=== PATIENT | female | born 1945 | race Caucasian/White ===

== ENCOUNTER 2021-12-26 11:33 | Emergency (ER) | payer OTHER ==
--- NOTE | 2021-12-26 12:37 | RAD REPORT ---
EXAM DESCRIPTION: RAD - Chest Single View - 12/26/2021 12:28 pm CLINICAL HISTORY: back pain Chest pain. COMPARISON: Chest Pa And Lat (2 Views) dated 09/02/2017; CHEST SINGLE VIEW dated 08/22/2013; CHEST SIN GLE VIEW dated 01/10/2013; CHEST SINGLE VIEW dated 09/20/2008 FINDINGS: Portable technique limits examination quality. The lungs are grossly clear. The heart is normal in size. No displaced fractures. IMPRESSION: No acute intrathoracic process suspected.
[2021-12-26 13:28] LABS: Absolute Lymphocytes (CBC) 1.7 K/uL (0.7-4.9); Hematocrit 41.4 % (36.0-45.0); Lymphocytes % 28.5 % (15.3-44.8); MPV 7.9 fL (7.6-11.3); RBC Red Blood Cell Count 4.66 M/uL (3.86-4.86)
[2021-12-26 13:32] LABS: Protime INR 1.03
[2021-12-26] MEDS ORDERED: NA CHLORIDE 0.9% 500 ML ONE (13:36)
[2021-12-26 13:49] LABS: Albumin 3.7 g/dL (3.4-5.0); Bilirubin Direct 0.1 mg/dL (0-0.2); Bilirubin Total 0.6 mg/dL (0.2-1.0); Protein, Total 7.2 g/dL (6.4-8.2); Troponin High Sensitivity 4.9 pg/mL (<58.9)
--- NOTE | 2021-12-26 14:36 | ER ---
Nurse's Notes [facility] Name: Sandra Moore Age: 76 yrs Sex: Female : 1945 Arrival Date: 12/26/2021 Time: 11:40 Bed 14 Private MD: Diagnosis: Muscle spasm of back Presentation: 12/26 11:56 Chief complaint: Patient states: Back pain for 2 days. States she feels anxious because ll1 of the pain. Mouth feels dry. Coronavirus screen: Client denies travel out of the [place] in the last 14 days. At this time, the client does not indicate any symptoms associated with coronavirus-19. Ebola Screen: Patient denies travel to an Ebola-affected area in the 21 days before illness onset. Initial Sepsis Screen: Does the patient meet any 2 criteria? No. Patient's initial sepsis screen is negative. Does the patient have a suspected source of infection? No. Patient's initial sepsis screen is negative. Risk Assessment: Do you want to hurt yourself or someone else? Patient reports no desire to harm self or others. Onset of symptoms was December 25, 2021. 11:56 Method Of Arrival: Ambulatory ll1 11:56 Acuity: MITESH 3 ll1 Triage Assessment: 11:59 General: Appears uncomfortable, Behavior is calm, cooperative. Pain: Complains of pain ll1 in back. Neuro: Reports anxiety. Musculoskeletal: Circulation, motion, and sensation intact. Capillary refill < 3 seconds. Historical: - Allergies: 11:58 Codeine; ll1 11:58 Keflex; ll1 11:58 PENICILLINS; ll1 - PMHx: 11:58 Anxiety; chronic kidney disease (stage 3); GERD; Hypertension; Obesity; osteoarthritis; ll1 - PSHx: 11:58 carpal tunnel x 2; Cholecystectomy; Tonsillectomy; ll1 - Immunization history:: Client reports receiving the 2nd dose of the Covid vaccine. - Social history:: Smoking status: Patient denies any tobacco usage or history of. Screenin:25 Abuse screen: Denies threats or abuse. Denies injuries from another. Nutritional ww screening: No deficits noted. Tuberculosis screening: No symptoms or risk factors identified. Fall Risk None identified. Assessment: 13:30 General: Appears in no apparent distress. Behavior is calm, cooperative. Pain: ww Complains of pain in base of the skull. Neuro: Level of Consciousness is awake, alert, obeys commands, Oriented to person, place, time, situation, Gait is steady, Speech is normal. Cardiovascular: Patient's skin is warm and dry. Chest pain is denied. Respiratory: Airway is patent Respiratory effort is even, unlabored, Respiratory pattern is regular, symmetrical. GI: No signs and/or symptoms were reported involving the gastrointestinal system. Abdomen is non-distended. : No signs and/or symptoms were reported regarding the genitourinary system. EENT: Reports pain in tongue. Derm: Skin is intact, is healthy with good turgor. 14:26 Reassessment: Patient appears in no apparent distress at this time. No changes from ww previously documented assessment. Patient and/or family updated on plan of care and expected duration. Pain level reassessed. Patient is alert, oriented x 3, equal unlabored respirations, skin warm/dry/pink. 15:22 Reassessment: Patient appears in no apparent distress at this time. No changes from ww previously documented assessment. Patient and/or family updated on plan of care and expected duration. Pain level reassessed. Patient is alert, oriented x 3, equal unlabored respirations, skin warm/dry/pink. Patient states feeling better. Vital Signs: 11:56 BP 123 / 76; Pulse 83; Resp 17; Temp 98.1; Pulse Ox 95% on R/A; Weight 58.06 kg; Height ll1 5 ft. 3 in. (160.02 cm); Pain 8/10; 13:45 BP 132 / 65; Pulse 68; Resp 15; Pulse Ox 100% ; ww 14:30 BP 139 / 77; Pulse 60; Resp 17; Pulse Ox 98% ; ww 15:23 BP 160 / 98; Pulse 72; Resp 17; Pulse Ox 100% ; ww 11:56 Body Mass Index 22.67 (58.06 kg, 160.02 cm) ll1 ED Course: 11:40 Patient arrived in ED. ds1 11:58 Triage completed. ll1 11:59 Arm band placed on. ll1 12:01 Jose Angel Molina NP is PHCP. pm1 12:01 Ghulam Lopez MD is Attending Physician. pm1 12:30 XRAY Chest (1 view) In Process Unspecified. EDMS 13:24 Palma Stewart, RN is Primary Nurse. ww 14:00 Inserted saline lock: 20 gauge in right forearm, using aseptic technique. ww 15:25 Patient has correct armband on for positive identification. Bed in low position. Call ww light in reach. Side rails up X 1. 15:25 No provider procedures requiring assistance completed. ww 15:26 IV discontinued, bleeding controlled, No redness/swelling at site. Pressure dressing ww applied. Administered Medications: 13:52 Drug: NS 0.9% 500 ml Route: IV; Rate: bolus; Site: right forearm; ww 15:03 Drug: Valium (diazepam) 2 mg Route: PO; ww Outcome: 14:35 Discharge ordered by MD. pm1 15:26 Discharged to home ambulatory. ww 15:26 Condition: stable 15:26 Discharge instructions given to patient, Instructed on discharge instructions, follow up and referral plans. medication usage, safety practices, Demonstrated understanding of instructions, follow-up care. 15:30 Patient left the ED. ww Signatures: Dispatcher [employer] [facility] Sarah Pavon ds1 Jose Angel Molina, [place] LINTER TENDER pm1 Katia Mcmullen, RN RN ll1 Palma Stewart, RN RN ww
--- NOTE | 2021-12-26 14:36 | EDPHYS ---
Physician Documentation [facility] Name: Sandra Moore Age: 76 yrs Sex: Female : 1945 Arrival Date: 12/26/2021 Time: 11:40 Bed 14 Private MD: ED Physician Ghulam Lopez HPI: 12/26 12:02 This 76 yrs old Female presents to ER via Ambulatory with complaints of Back Pain, pm1 Anxiety. 12:02 The patient presents with pain that is acute. The symptoms are located in the left pm1 trapezius and right trapezius. 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 The pain does not radiate. Associated signs and symptoms: Pertinent positives: Anxiety, Pertinent negatives: abdominal pain, chest pain, fever, numbness, tingling. The problem was sustained physical activity: mowing the lawn. Modifying factors: the patient symptoms are aggravated by movement. Severity of symptoms: in the emergency department the symptoms are unchanged. The patient has not experienced similar symptoms in the past. The patient has not recently seen a physician. Historical: - Allergies: 11:58 Codeine; ll1 11:58 Keflex; ll1 11:58 PENICILLINS; ll1 - PMHx: 11:58 Anxiety; chronic kidney disease (stage 3); GERD; Hypertension; Obesity; osteoarthritis; ll1 - PSHx: 11:58 carpal tunnel x 2; Cholecystectomy; Tonsillectomy; ll1 - Immunization history:: Client reports receiving the 2nd dose of the Covid vaccine. - Social history:: Smoking status: Patient denies any tobacco usage or history of. ROS: 12:02 Constitutional: Negative for fever, chills, and weight loss, Cardiovascular: Negative pm1 for chest pain, palpitations, and edema, Respiratory: Negative for shortness of breath, cough, wheezing, and pleuritic chest pain, MS/Extremity: Negative for injury and deformity, Skin: Negative for injury, rash, and discoloration, Neuro: Negative for headache, weakness, numbness, tingling, and seizure. 12:02 Psych: Positive for suicidal ideation, Negative for homicidal ideation. 12:02 All other systems are negative. Exam: 12:02 Constitutional: This is a well developed, well nourished patient who is awake, alert, pm1 and in no acute distress. Head/Face: Normocephalic, atraumatic. Chest/axilla: Normal chest wall appearance and motion. Nontender with no deformity. No lesions are appreciated. Cardiovascular: Regular rate and rhythm with a normal S1 and S2. No gallops, murmurs, or rubs. Normal PMI, no JVD. No pulse deficits. Respiratory: Lungs have equal breath sounds bilaterally, clear to auscultation and percussion. No rales, rhonchi or wheezes noted. No increased work of breathing, no retractions or nasal flaring. 12:02 Skin: Warm, dry with normal turgor. Normal color with no rashes, no lesions, and no evidence of cellulitis. MS/ Extremity: Pulses equal, no cyanosis. Neurovascular intact. Full, normal range of motion. 12:02 Abdomen/GI: Exam negative for acute changes, Inspection: abdomen appears normal, Palpation: abdomen is soft and non-tender, in all quadrants. 12:02 Back: muscle spasm, is appreciated in the left trapezius and right trapezius. 12:02 Neuro: Exam negative for acute changes, Orientation: is normal, Mentation: is normal, Motor: is normal, moves all fours. Vital Signs: 11:56 BP 123 / 76; Pulse 83; Resp 17; Temp 98.1; Pulse Ox 95% on R/A; Weight 58.06 kg; Height ll1 5 ft. 3 in. (160.02 cm); Pain 8/10; 13:45 BP 132 / 65; Pulse 68; Resp 15; Pulse Ox 100% ; ww 14:30 BP 139 / 77; Pulse 60; Resp 17; Pulse Ox 98% ; ww 15:23 BP 160 / 98; Pulse 72; Resp 17; Pulse Ox 100% ; ww 11:56 Body Mass Index 22.67 (58.06 kg, 160.02 cm) ll1 MDM: 12:14 Patient medically screened. pm1 14:32 Data reviewed: vital signs. Data interpreted: Pulse oximetry: on room air is 95 %. pm1 Interpretation: normal. Counseling: I had a detailed discussion with the patient and/or guardian regarding: the historical points, exam findings, and any diagnostic results supporting the discharge/admit diagnosis, lab results, radiology results, the need for outpatient follow up, to return to the emergency department if symptoms worsen or persist or if there are any questions or concerns that arise at home. 14:46 ED course: Patient's back pain resolved with massage to upper back. Patient is pm1 concerned that she may have thrush. Will discharge home with nystatin. 12/26 12:02 Order name: Basic Metabolic Panel; Complete Time: 13:50 pm1 12/26 12:02 Order name: CBC with Diff; Complete Time: 13:37 pm1 12/26 12:02 Order name: LFT's; Complete Time: 13:50 pm1 12/26 12:02 Order name: Magnesium; Complete Time: 13:50 pm1 12/26 12:02 Order name: PT-INR; Complete Time: 13:37 pm1 12/26 12:02 Order name: Troponin HS; Complete Time: 13:50 pm1 12/26 12:02 Order name: XRAY Chest (1 view); Complete Time: 13:22 pm1 12/26 12:02 Order name: EKG; Complete Time: 12:03 pm1 12/26 12:02 Order name: Cardiac monitoring; Complete Time: 13:25 pm1 12/26 12:02 Order name: EKG - Nurse/Tech; Complete Time: 13:52 pm1 12/26 12:02 Order name: IV Saline Lock; Complete Time: 13:25 pm1 12/26 12:02 Order name: Labs collected and sent; Complete Time: 13:25 pm1 12/26 12:02 Order name: O2 Per Protocol; Complete Time: 13:25 pm1 12/26 12:02 Order name: O2 Sat Monitoring; Complete Time: 13:25 pm1 Administered Medications: 13:52 Drug: NS 0.9% 500 ml Route: IV; Rate: bolus; Site: right forearm; ww 15:03 Drug: Valium (diazepam) 2 mg Route: PO; ww Disposition: 18:55 Co-signature as Attending Physician, Ghulam Lopez MD. rn Disposition Summary: 12/26/21 14:35 Discharge Ordered Location: Home pm1 Problem: new pm1 Symptoms: have improved pm1 Condition: Stable pm1 Diagnosis - Muscle spasm of back pm1 Followup: pm1 - With: Emergency Department - When: As needed - Reason: Worsening of condition Followup: pm1 - With: Private Physician - When: 2 - 3 days - Reason: Recheck today's complaints, Continuance of care, Re-evaluation by your physician Discharge Instructions: - Discharge Summary Sheet pm1 - Muscle Cramps and Spasms pm1 Forms: - Medication Reconciliation Form pm1 - Thank You Letter pm1 - Antibiotic Education pm1 - Prescription Opioid Use pm1 Prescriptions: - Nystatin 100,000 unit/mL Oral Suspension - take 5 milliliters by ORAL route every 6 hours; 120 milliliter; Refills: 0, pm1 Product Selection Permitted Signatures: Dispatcher [employer] EDGhulam Mtz MD MD rn Jose Angel Molina, SUPERVISOR SLASHING DEPARTMENT SUPERVISOR SLASHING DEPARTMENT pm1 Katia Mcmullen RN RN ll1 Palma Stewart RN RN ww Corrections: (The following items were deleted from the chart) 14:36 14:35 Strain of muscle and tendon of back wall of thorax pm1 pm1
[2021-12-26] MEDS ORDERED: DIAZEPAM 2 MG TABLET ONE (15:03)
[2021-12-26 17:45] VITALS: TEMP 98.1
[2021-12-26 17:49] VITALS: BP 160/98; O2SAT 100
--- NOTE | 2021-12-27 12:55 | EKG ---
Test Date: 2021-12-26 Test Time: 13:45:19 Stencil Printer: JC MEASUREMENT RESULTS: Intervals: Rate: 63 ME: 174 QRSD: 112 QT: 430 QTc: 440 [place]: P: 16 ME: 174 QRS: -36 T: 255 INTERPRETIVE STATEMENTS: Normal sinus rhythm Left axis deviation Minimal voltage criteria for LVH, may be normal variant T wave abnormality, consider inferolateral ischemia Abnormal ECG Compared to ECG 09/02/2017 11:48:52 Left-axis deviation now present T-wave abnormality now present Possible ischemia now present Electronically Signed On 12-27-21 12:52:09 CDT by Mauricio Bermudez
== END 2021-12-26 15:30 | disposition home or self-care (01) ==
LOC: ER 11:33
DX: M62.830 Muscle spasm of back (principal); I12.9 Hypertensive chronic kidney disease with stage 1 through stage 4 chronic kidney disease, or unspecified chronic kidney disease; N18.30 Chronic kidney disease, stage 3 unspecified; F41.9 Anxiety disorder, unspecified; Z88.0 Allergy status to penicillin; Z88.5 Allergy status to narcotic agent
CPT/HCPCS: 93005; 85025; 80048; 36415; 83735; 85610; 80076; 84484; 71045; 99284; J7040

== ENCOUNTER 2022-05-04 23:13 | Emergency (ER) | payer OTHER, SELFPAY ==
[2022-05-05] MEDS ORDERED: MAGNES/ALUMIN/SIMET 30ML UCUP ONE (00:01)
[2022-05-05] MEDS ORDERED: LIDOCAINE VISCOUS 2% SOLN 15 ML UDC ONE (00:01)
[2022-05-05 01:00] LABS: Urine Blood 2+ (Negative); Urine Glucose Negative (Negative); Urine Protein Negative (Negative); Urine Specific Gravity >=1.030 (1.005-1.030); Urine pH 5.5 (5.0-7.0)
[2022-05-05 01:24] LABS: Barbiturates NEGATIVE (NEGATIVE); Benzodiazepines NEGATIVE (NEGATIVE); Cocaine NEGATIVE (NEGATIVE); METHAMPHETAM NEGATIVE (NEGATIVE); Methadone NEGATIVE (NEGATIVE); Opiates NEGATIVE (NEGATIVE); Phencyclidine NEGATIVE (NEGATIVE); THC Cannibis NEGATIVE (NEGATIVE)
--- NOTE | 2022-05-05 01:26 | EDPHYS ---
Physician Documentation [facility] Name: Sandra Moore Age: 77 yrs Sex: Female : 1945 Arrival Date: 05/04/2022 Time: 23:19 Bed 4 Private MD: ED Physician Ghulam Lopez HPI: 05/05 01:31 This 77 yrs old Female presents to ER via Ambulatory with complaints of Mouth Swelling. snw 01:31 The patient presents with tongue painful and mildly swollen. The problem is located in snw the tongue. Onset: The symptoms/episode began/occurred suddenly. Duration: The symptoms are continuous. Associated signs and symptoms: Pertinent positives: pain, swelling, upper respiratory congestion. Severity of symptoms: At their worst the symptoms were moderate. The patient has not experienced similar symptoms in the past. The patient has not recently seen a physician. Historical: - Allergies: 05/04 23:40 Codeine; bm7 23:40 Keflex; bm7 23:40 PENICILLINS; bm7 - Home Meds: 23:40 None [Active]; bm7 - PMHx: 23:40 osteoarthritis; Hypertension; GERD; chronic kidney disease (stage 3); Anxiety; bm7 - PSHx: 23:40 carpal tunnel x 2; Cholecystectomy; Tonsillectomy; bm7 - Immunization history:: Adult Immunizations up to date, Client reports receiving the 2nd dose of the Covid vaccine, Client reports receiving the 1st dose of the Covid vaccine. - Social history:: Smoking status: Patient denies any tobacco usage or history of. Patient/guardian denies using alcohol, street drugs, IV drugs. ROS: 05/05 01:33 Constitutional: Negative for fever, chills, and weight loss, Eyes: Negative for injury, snw pain, redness, and discharge, Neck: Negative for injury, pain, and swelling, Cardiovascular: Negative for chest pain, palpitations, and edema, Respiratory: Negative for shortness of breath, cough, wheezing, and pleuritic chest pain, Abdomen/GI: Negative for abdominal pain, nausea, vomiting, diarrhea, and constipation, Back: Negative for injury and pain, : Negative for injury, bleeding, discharge, and swelling, MS/Extremity: Negative for injury and deformity, Skin: Negative for injury, rash, and discoloration, Neuro: Negative for headache, weakness, numbness, tingling, and seizure. ENT: Positive for ear pain, sinus congestion, painful, swollen tongue. Exam: 01:33 Constitutional: This is a well developed, well nourished patient who is awake, alert, snw and in no acute distress. Head/Face: Normocephalic, atraumatic. Eyes: Pupils equal round and reactive to light, extra-ocular motions intact. Lids and lashes normal. Conjunctiva and sclera are non-icteric and not injected. Cornea within normal limits. Periorbital areas with no swelling, redness, or edema. Neck: Trachea midline, no thyromegaly or masses palpated, and no cervical lymphadenopathy. Supple, full range of motion without nuchal rigidity, or vertebral point tenderness. No Meningismus. Chest/axilla: Normal chest wall appearance and motion. Nontender with no deformity. No lesions are appreciated. Cardiovascular: Regular rate and rhythm with a normal S1 and S2. No gallops, murmurs, or rubs. Normal PMI, no JVD. No pulse deficits. Respiratory: Lungs have equal breath sounds bilaterally, clear to auscultation and percussion. No rales, rhonchi or wheezes noted. No increased work of breathing, no retractions or nasal flaring. Abdomen/GI: Soft, non-tender, with normal bowel sounds. No distension or tympany. No guarding or rebound. No evidence of tenderness throughout. Back: No spinal tenderness. No costovertebral tenderness. Full range of motion. Skin: Warm, dry with normal turgor. Normal color with no rashes, no lesions, and no evidence of cellulitis. MS/ Extremity: Pulses equal, no cyanosis. Neurovascular intact. Full, normal range of motion. Neuro: Awake and alert, GCS 15, oriented to person, place, time, and situation. Cranial nerves II-XII grossly intact. Motor strength 5/5 in all extremities. Sensory grossly intact. Cerebellar exam normal. Normal gait. :33 ENT: External ear(s): are unremarkable, Ear canal(s): are normal, TM's: are normal, Nose: Nasal mucosa: edematous, Mouth: Tongue: displays fissures, is swollen, tender, Posterior pharynx: erythema, that is mild, Voice: is normal. Vital Signs: 05/04 23:38 BP 174 / 90; Pulse 76; Resp 18; Temp 99.0(TE); Pulse Ox 100% on R/A; Weight 58.06 kg bm7 (R); Height 5 ft. 3 in. (160.02 cm); Pain 06/04; 05/05 01:41 BP 140 / 82; Pulse 62; Resp 17; Pulse Ox 97% on R/A; ll3 05/04 23:38 Body Mass Index 22.67 (58.06 kg, 160.02 cm) bm7 MDM: 05/04 23:40 Patient medically screened. rn 05/05 01:31 Data reviewed: vital signs, nurses notes. Data interpreted: Pulse oximetry: on room air snw is 100 %. Interpretation: normal. Counseling: I had a detailed discussion with the patient and/or guardian regarding: the historical points, exam findings, and any diagnostic results supporting the discharge/admit diagnosis, the presence of at least one elevated blood pressure reading (>120/80) during this emergency department visit, lab results, the need for outpatient follow up, to return to the emergency department if symptoms worsen or persist or if there are any questions or concerns that arise at home. Special discussion: Based on the history and exam findings, there is no indication for further emergent testing or inpatient evaluation. I discussed with the patient/guardian the need to see the primary care provider for further evaluation of the symptoms. ED course: Pt states she is feeling better.. 05/04 23:50 Order name: Flu; Complete Time: 00:38 snw 05/04 23:50 Order name: Strep; Complete Time: 00:13 snw 05/04 23:50 Order name: UDS; Complete Time: 01:24 snw 05/04 23:50 Order name: Urine Culture snw 05/04 23:50 Order name: Urine Microscopic Only; Complete Time: 16:20 snw 05/04 23:50 Order name: Urine Dipstick-Ancillary (obtain specimen); Complete Time: 01:13 snw 05/05 00:02 Order name: SARS-COV-2 RT PCR (Document "Date of Onset" if Symptomatic); Complete Time: ds4 00:38 05/05 00:15 Order name: Throat Culture EDID 05/05 01:00 Order name: Urine Dipstick-Ancillary; Complete Time: 01:01 EDMS Administered Medications: 05/04 23:57 Drug: GI Cocktail without - (Maalox Suspension 30 ml, Lidocaine Liquid 2 % 15 bm7 ml) Route: PO; 05/05 01:51 Drug: Cyanocobalamin 1000 mcg Route: IM; Site: left deltoid; ke1 Disposition: 06:08 Co-signature as Attending Physician, Ghulam Lopez MD. rn Disposition Summary: 05/05/22 01:25 Discharge Ordered Location: Home snw Condition: Stable snw Diagnosis - Glossitis snw Followup: snw - With: Private Physician - When: 2 - 3 days - Reason: Recheck today's complaints, Continuance of care, Re-evaluation by your physician Followup: snw - With: Emergency Department - When: As needed - Reason: Worsening of condition Discharge Instructions: - Discharge Summary Sheet snw - Glossitis snw Forms: - Medication Reconciliation Form snw - Thank You Letter snw - Antibiotic Education snw - Prescription Opioid Use snw Prescriptions: - Tums Extra Strength Smoothies - dissolve 1 tablet by ORAL route 3 times per day for 10 days; 30 tablet; snw Refills: 0, Product Selection Permitted Signatures: Dispatcher [employer] EDMS Raven Taveras, COAL BAGGER-C COAL BAGGER-Csnw Ghulam Lopez MD MD rn McCarthy, Brittany, RN RN 7 Yvan Shetty RN RN ke1 Corrections: (The following items were deleted from the chart) 05/04 23:40 23:40 PMHx: Obesity; bm7 bm7 05/05 00:06 05/04 23:51 SARS-COV-2 Antigen Rapid+I.LAB.BRZ ordered. EDMS EDMS
--- NOTE | 2022-05-05 01:26 | ER ---
Nurse's Notes [facility] Name: Sandra Moore Age: 77 yrs Sex: Female : 1945 Arrival Date: 05/04/2022 Time: 23:19 Bed 4 Private MD: Diagnosis: Glossitis Presentation: 05/04 23:38 Chief complaint: Patient states: I feel so bad all over, my throat hurts, I have sores bm7 on my tongue and my son thinks I am on drugs. He has been so mean to me today and told me to get out of the house and that I am crazy. He has a good case against me because I am old and forget things. Coronavirus screen: Client presents with at least one sign or symptom that may indicate coronavirus-19. Standard/surgical mask placed on the client. Ebola Screen: No symptoms or risks identified at this time. Initial Sepsis Screen: Does the patient meet any 2 criteria? No. Patient's initial sepsis screen is negative. Does the patient have a suspected source of infection? No. Patient's initial sepsis screen is negative. Risk Assessment: Do you want to hurt yourself or someone else? Patient reports no desire to harm self or others. Onset of symptoms is unknown. 23:38 Method Of Arrival: Ambulatory [facility] 23:38 Acuity: MITESH 4 bm7 Triage Assessment: 23:41 General: Appears distressed, uncomfortable, Behavior is anxious, crying, restless. bm7 Pain: Complains of pain in mouth. EENT: Oral mucosa is moist. Lesions noted. Throat is reddened Reports difficulty swallowing. Neuro: No deficits noted. Level of Consciousness is awake, alert, obeys commands, Oriented to person, place, time, situation. Cardiovascular: No deficits noted. Respiratory: No deficits noted. GI: No deficits noted. No signs and/or symptoms were reported involving the gastrointestinal system. : No deficits noted. No signs and/or symptoms were reported regarding the genitourinary system. Derm: No deficits noted. No signs and/or symptoms reported regarding the dermatologic system. Musculoskeletal: No deficits noted. No signs and/or symptoms reported regarding the musculoskeletal system. Historical: - Allergies: 23:40 Codeine; bm7 23:40 Keflex; bm7 23:40 PENICILLINS; bm7 - Home Meds: 23:40 None [Active]; bm7 - PMHx: 23:40 osteoarthritis; Hypertension; GERD; chronic kidney disease (stage 3); Anxiety; 7 - PSHx: 23:40 carpal tunnel x 2; Cholecystectomy; Tonsillectomy; bm7 - Immunization history:: Adult Immunizations up to date, Client reports receiving the 2nd dose of the Covid vaccine, Client reports receiving the 1st dose of the Covid vaccine. - Social history:: Smoking status: Patient denies any tobacco usage or history of. Patient/guardian denies using alcohol, street drugs, IV drugs. Screenin/10 01:41 Abuse screen: Denies threats or abuse. Denies injuries from another. Nutritional ll3 screening: No deficits noted. Tuberculosis screening: No symptoms or risk factors identified. Fall Risk None identified. Assessment: 01:16 General: Appears uncomfortable, Behavior is calm, cooperative. Pain: Complains of pain ll3 in mouth Pain began 2-3 days ago. Neuro: Level of Consciousness is awake, alert, obeys commands, Oriented to person, place, time, situation. Cardiovascular: Patient's skin is warm and dry. Respiratory: Airway is patent Respiratory effort is even, unlabored, Respiratory pattern is regular, symmetrical. EENT: Oral mucosa is dry. Pt c/o of tongue . Derm: Skin is pink, warm \T\ dry. Vital Signs: 05/04 23:38 BP 174 / 90; Pulse 76; Resp 18; Temp 99.0(TE); Pulse Ox 100% on R/A; Weight 58.06 kg 7 (R); Height 5 ft. 3 in. (160.02 cm); Pain 06/04; 05/05 01:41 BP 140 / 82; Pulse 62; Resp 17; Pulse Ox 97% on R/A; ll3 05/04 23:38 Body Mass Index 22.67 (58.06 kg, 160.02 cm) 7 ED Course: 05/04 23:19 Patient arrived in ED. ja2 23:40 Triage completed. bm7 23:40 Ghulam Lopez MD is Attending Physician. rn 23:40 Arm band placed on right wrist. bm7 23:42 Raven Taveras F[facility]-C is [facility]. rn 05/05 01:30 Ebrottie, Kouassi, RN is Primary Nurse. ke1 01:41 No provider procedures requiring assistance completed. Patient did not have IV access ll3 during this emergency room visit. Administered Medications: 05/04 23:57 Drug: GI Cocktail without - (Maalox Suspension 30 ml, Lidocaine Liquid 2 % 15 bm7 ml) Route: PO; 05/05 01:51 Drug: Cyanocobalamin 1000 mcg Route: IM; Site: left deltoid; ke1 Medication: 01:41 VIS not applicable for this client. ll3 Outcome: 01:25 Discharge ordered by . snw 02:21 Patient left the ED. ll3 Signatures: Raven Taveras, [employer] [employer] Ghulam Lopez MD MD rn McCarthy, Brittany, RN RN 7 Haylee Shah Lynsea, RN RN 3 Yvan Shetty, GILSON RN ke1 Corrections: (The following items were deleted from the chart) 05/04 23:40 23:40 PMHx: Obesity; bm7 bm7
[2022-05-05 01:46] LABS: Urine Bacteria <20 /HPF (<20); Urine Mucus Slight /HPF (None Seen)
[2022-05-05] MEDS ORDERED: CYANOCOBALAMIN 1000MCG/ML INJ ONE (01:48)
[2022-05-05 07:48] VITALS: TEMP 99
[2022-05-05 07:50] VITALS: BP 140/82; O2SAT 97
== END 2022-05-05 02:21 | disposition home or self-care (01) ==
LOC: ER 23:13
DX: K14.0 Glossitis (principal); I12.9 Hypertensive chronic kidney disease with stage 1 through stage 4 chronic kidney disease, or unspecified chronic kidney disease; N18.30 Chronic kidney disease, stage 3 unspecified; Z88.0 Allergy status to penicillin; Z88.5 Allergy status to narcotic agent
CPT/HCPCS: 80307; 81003; 81015; 87070; 87081; 87086; 87088; 87804; 96372; 99282; J3420; U0003

== ENCOUNTER 2023-03-09 00:02 | Emergency (ER) | payer OTHER, SELFPAY ==
--- OUTSIDE RECORDS SUMMARY | 2023-03-09 00:07 | XMS REPORT | Continuity of Care Document ---
:1945 Author Organization [facility] t Address [address] [place] [id number] Care Team Providers Name Role Phone Ventura Wallace Attending Clinician Problems Condition Condition Condition Status Onset Resolution Last Treating Co mments Source Name Details Category Date Date Treatment Clinician Date Amnesia Amnesia Problem Active 2022-04-26 Me moria (finding) (finding) 22:49:47 l Active [place] Problem 04/26/2022 [facility] Headache Headache Problem Active 2022-04-26 Memoria (finding) (finding) 22:49:47 l Active [place] Problem 04/26/2022 [facility] Impaired Impaired Problem Active 2022-04-26 Memoria cognition cognition 22:49:47 l (finding) (finding) Herm diandra Active Problem 04/26/2022 [facility] Allergies, Adverse Reactions, Alerts Allergy Allergy Status Severity Reaction(s) Onset Inactive Treating Comm ents Source Name Type Date Date Clinician penicill penicill Active Memori a in in l Fili Keflex Keflex Active Memoria l [place] Social History Social Habit Start Date Stop Date Quantity Comments Source Social History 2020-12-12 2020-12-12 Ed frank 21:05:54 21:05:54 Medications This patient has no known medications. Vital Signs Vital Name Observation Time Observation Value Comments Source Systolic (mm Hg) 2022-02-14 16:26:00 Hipolito Penn Diastolic (mm Hg) 2022-02-14 16:26:00 Lilia zavalaal [place] Heart Rate 2022-02-14 16:26:00 Ed Penn Respitory Rate 2022-02-14 16:26:00 Jory Martins Height 2022-02-14 16:26:00 154.94 cm Ed Penn Weight 2022-02-14 16:26:00 Ed Penn BMI Calculated 2022-02-14 16:26:00 Memori al Fili Systolic (mm Hg) 2020-12-12 21:04:00 Hipolito Milliganann Diastolic (mm Hg) 2020-12-12 21:04:00 Mem orial [place] Heart Rate 2020-12-12 21:04:00 [facility]ili Respitory Rate 2020-12-12 21:04:00 Jory preston [place] [facility] 2020-12-12 [facility]00 [facility] Procedure Date / Time Performed Performing Clinician Sourc e Appendectomy [facility] Cholecystectomy [facility] Encounters Start End Encounter Admission Attending Care Care Encounter Source Date/Time Date/Time Type Type Clinicians Facility Department ID 2022-04-24 2022-04-24 Ambulatory nullFlavo MNA [id number] Memoria 18:00:00 18:00:00 Pre-Reg r Neurology 07 l Xi Penn 2022-04-24 2022-04-24 Ambulatory nullFlavo MNA [id number] Memoria 18:00:00 18:00:00 Pre-Reg r Neurology 07 l Xi Milliganann 2022-04-24 2022-04-24 Outpatient MHIE MHDK [id number] Memoria 13:00:00 13:00:00 07 justa Fili 2022-04-24 2022-04-24 Outpatient CHRISTIANNE Wallace GIOVANISCHMORENO [id number] 13:00:00 13:00:00 Ventura Junaid Jose 2022-04-19 2022-04-19 Ambulatory nullFlavo MNA [id number] Memoria 21:15:00 21:15:00 Pre-Reg r Neurology 06 l Xi Milliganann 2022-04-19 2022-04-19 Ambulatory nullFlavo MNA [id number] Memoria 21:15:00 21:15:00 Pre-Reg r Neurology 06 l Xi Milliganann 2022-04-19 2022-04-19 Outpatient MHIE MHIE [id number] Memoria 16:15:00 16:15:00 06 justa Penn 2022-04-19 2022-04-19 Outpatient CHRISTIANNE Wallace MISCHMORENO [id number] 16:15:00 16:15:00 Ventura Maurilio Jose 2022-04-06 2022-04-06 Ambulatory nullFlavo MNA [id number] Memoria 21:00:00 21:00:00 Pre-Reg r Neurology 05 l Xi Penn 2022-04-06 2022-04-06 Ambulatory nullFlavo MNA [id number] Memoria 21:00:00 21:00:00 Pre-Reg r Neurology 05 l Xi Penn 2022-04-06 2022-04-06 Outpatient MHIE MHIE [id number] Memoria 16:00:00 16:00:00 05 justa Penn 2022-04-06 2022-04-06 [id number] 16:00:00 16:00:00 Ventura 05 Jose 2022-03-16 2022-03-16 Ambulatory nullFlavo MNA [id number] Memoria 20:30:00 20:30:00 Pre-Reg r Neurology 04 l Xi Penn 2022-03-16 2022-03-16 Ambulatory nullFlavo MNA [id number] Memoria 20:30:00 20:30:00 Pre-Reg r Neurology 04 l Xi Penn 2022-03-16 2022-03-16 Outpatient MHIE IE [id number] Memoria 15:30:00 15:30:00 04 justa Penn 2022-03-16 2022-03-16 [facility] [id number] 15:30:00 15:30:00 Ventura 04 Jose 2022-02-14 2022-02-15 Outpatient nullFlavo MNA [id number] Memoria 16:00:00 04:59:59 r Neurology 03 l Xi Milliganann 2022-02-14 2022-02-15 Outpatient nullFlavo MNA [id number] Memoria 16:00:00 04:59:59 r Neurology 03 justa Milliganann 2022-02-14 2022-02-14 [id number] 11:00:00 23:59:59 Ventura 03 Jose 2022-02-14 2022-02-14 Outpatient MHIE MHIE [id number] Memoria 11:00:00 11:00:00 03 justa Penn 2021-12-04 2021-12-04 Ambulatory nullFlavo MNA [id number] Memoria 18:00:00 18:00:00 Pre-Reg r Neurology 02 l Xi Penn 2021-12-04 2021-12-04 Ambulatory nullFlavo MNA [id number] Memoria 18:00:00 18:00:00 Pre-Reg r Neurology 02 l Xi Fili 2021-12-04 2021-12-04 [facility] [id number] 13:00:00 13:00:00 Ventura Jose 2021-11-16 2021-11-16 Outpatient MHIE MHIE [id number] Memoria 15:15:00 15:15:00 02 justa Fili 2021-01-24 2021-01-24 Ambulatory nullFlavo MNA [id number] Memoria 20:45:00 20:45:00 Pre-Reg r Neurology 01 l Xi Fili 2021-01-24 2021-01-24 Ambulatory nullFlavo MNA [id number] Memoria 20:45:00 20:45:00 Pre-Reg r Neurology 01 justa Bertie Fili 2021-01-24 2021-01-24 Outpatient MHIE MHIE [id number] Memoria 15:45:00 15:45:00 01 justa Fili 2021-01-24 2021-01-24 Outpatient CHRISTIANNE Wallace [facility] [id number] 15:45:00 15:45:00 Ventura 01 Jose 2020-12-12 2020-12-13 Outpatient nullFlavo MNA [id number] Memoria 21:00:00 04:59:59 r Neurology 00 justa Bertie Fili 2020-12-12 2020-12-13 Outpatient nullFlavo MNA [id number] Memoria 21:00:00 04:59:59 r Neurology 00 l Bertie Fili 2020-12-12 2020-12-12 [id number] 16:00:00 23:59:59 Ventura 00 Jose 2020-12-12 2020-12-12 Outpatient [facility] [id number] Memoria 16:00:00 16:00:00 00 l Fili Results Test Description Test Time Test Comments Results Result Comments Source ANEMIA STUDY 2022-02-14 18:28:00 Test Item Value Reference Range Interpretation Comme nts Vitamin B12 Lvl (test code = Vitamin B12 Lvl) 802 410-6411 [facility] [employer] [id number] 18:28:00 Test Item Value Reference Range Interpretation Comments Glucose Lvl (test code = Glucose Lvl) 113 65-99 [facility] [id number] 18:28:00 Test Item Value Reference Range Interpretation Comments BUN (test code = BUN) 11 7-25 [facility] [id number] 18:28:00 Test Item Value Reference Range Interpretation Comments Creatinine Lvl (test code = Creatinine 0.86 0.60-0.93 Lvl) [facility] [id number] 18:28:00 Test Item Value Reference Range Interpretation Comments eGFR NON[place]AFR. [place] (test code = 65 eGFR NON-AFR. [place]) [facility] [id number] 18:28:00 Test Item Value Reference Range Interpretation Comments eGFR (test code = eGFR 75 ) [facility] [employer] [id number] 18:28:00 Test Item Value Reference Range Interpretation Comments B/C Ratio (test code = B/C NOT APPLICABLE 02-14 Ratio) [facility] [employer] [id number] 18:28:00 Test Item Value Reference Range Interpretation Comments Sodium Lvl (test code = Sodium Lvl) 139 135-146 [facility] [id number] 18:28:00 Test Item Value Reference Range Interpretation Comments Potassium Lvl (test code = Potassium 4.5 3.5-5.3 Lvl) [facility] [employer] [id number] 18:28:00 Test Item Value Reference Range Interpretation Comments Chloride Lvl (test code = Chloride Lvl) 106 98-110 [facility] [id number] 18:28:00 Test Item Value Reference Range Interpretation Comments CO2 (test code = CO2) 26 20-32 [facility] [id number] 18:28:00 Test Item Value Reference Range Interpretation Comments Calcium Lvl (test code = Calcium Lvl) 10.7 8.6-10.4 [place] 624342-06-22 18:28:00 Test Item Value Reference Range Interpretation Comments Total Protein (test code = Total 6.8 6.1-8.1 Protein) [facility]2022-06-22 18:28:00 Test Item Value Reference Range Interpretation Comments Vitamin B12 Lvl (test code = Vitamin 557 423-3757 B12 Lvl) [place] 624342-06-22 18:28:00 Test Item Value Reference Range Interpretation Comments Albumin Lvl (test code = Albumin Lvl) 4.4 3.6-5.1 [place] 624342-06-22 18:28:00 Test Item Value Reference Range Interpretation Comments Globulin (test code = Globulin) 2.4 1.9-3.7 [place] 624342-06-22 18:28:00 Test Item Value Reference Range Interpretation Comments A/G Ratio (test code = A/G Ratio) 1.8 1.0-2.5 [place] 624342-06-22 18:28:00 Test Item Value Reference Range Interpretation Comments Bili Total (test code = Bili Total) 0.4 0.2-1.2 [place] 624342-06-22 18:28:00 Test Item Value Reference Range Interpretation Comments Alk Phos (test code = Alk Phos) 52 37-153 [facility]2022-06-22 18:28:00 Test Item Value Reference Range Interpretation Comments ASPARTATE TRANSAMINASE (test code = 17 10-35 ASPARTATE TRANSAMINASE) [place] 624342-06-22 18:28:00 Test Item Value Reference Range Interpretation Comments ALANINE AMINOTRANSFERASE (test code = 17 6-29 ALANINE AMINOTRANSFERASE) [place] 378972-06-22 18:28:00 Test Item Value Reference Range Interpretation Comments WBC X 10x3 (test code = WBC X 10x3) 5.6 3.8-10.8 [place] 378972-06-22 18:28:00 Test Item Value Reference Range Interpretation Comments RBC X 10x6 (test code = RBC X 10x6) 4.59 3.80-5.10 [place] 378972-06-22 18:28:00 Test Item Value Reference Range Interpretation Comments Hgb (test code = Hgb) 13.6 11.7-15.5 [facility]2022-06-22 18:28:00 Test Item Value Reference Range Interpretation Comments Glucose Lvl (test code = Glucose Lvl) 113 65-99 [facility] AntonioWptbweiHPFFPSWYEE4521-02-80 18:28:00 Test Item Value Reference Range Interpretation Comments Hct (test code = Hct) 41.0 35.0-45.0 [facility] AntonioJntanztQKUPUVMFNT2144-96-20 18:28:00 Test Item Value Reference Range Interpretation Comments MCV (test code = MCV) 89.3 80.0-100.0 [place] 378972-06-22 18:28:00 Test Item Value Reference Range Interpretation Comments MCH (test code = MCH) 29.6 pg 27.0-33.0 [facility] [id number] 18:28:00 Test Item Value Reference Range Interpretation Comments MCHC (test code = MCHC) 33.2 32.0-36.0 [facility] AntonioNaineutUFUVFWJRWT2022-51-24 18:28:00 Test Item Value Reference Range Interpretation Comments RDW (test code = RDW) 13.4 11.0-15.0 [facility] [id number] 18:28:00 Test Item Value Reference Range Interpretation Comments Platelet (test code = Platelet) 220 140-400 [facility] AntonioQzgkylgTKIUMBGPDN8082-93-15 18:28:00 Test Item Value Reference Range Interpretation Comments MPV (test code = MPV) 10.1 7.5-12.5 [facility] AntonioQyxcwylBFZQLUXJLA1200-67-87 18:28:00 Test Item Value Reference Range Interpretation Comments Neutrophils # (test code = Neutrophils 3052 9759-9923 #) [facility] AntonioHmlenelTPHECVGMUZ9629-68-24 18:28:00 Test Item Value Reference Range Interpretation Comments Lymphocytes # (test code = Lymphocytes 7653 703-4401 #) [facility] AntonioRupbvrmCBWBYKCOGS6569-38-45 18:28:00 Test Item Value Reference Range Interpretation Comments Monocytes # (test code = Monocytes #) 426 200-950 [facility]2022-06-22 18:28:00 Test Item Value Reference Range Interpretation Comments BUN (test code = BUN) 11 7-25 [place] 378972-06-22 18:28:00 Test Item Value Reference Range Interpretation Comments Eosinophils # (test code = Eosinophils 118 15-500 #) [facility] AntonioLwsgbwbREGNCECQJX9130-30-78 18:28:00 Test Item Value Reference Range Interpretation Comments Basophils # (test code 28 See_Comment [Aut omated message] The = Basophils #) system which generated this result tra nsmitted reference range : <=200. The reference r sivakumar was not used to int erpret this result as normal/abnormal . [facility] [id number] 18:28:00 Test Item Value Reference Range Interpretation Comments Segs (test code = Segs) 54.5 [place] 378972-06-22 18:28:00 Test Item Value Reference Range Interpretation Comments Lymphocytes (test code = Lymphocytes) 35.3 [facility] AntonioHjuetivLOIVUOGGMH7787-90-97 18:28:00 Test Item Value Reference Range Interpretation Comments Monocytes (test code = Monocytes) 7.6 [facility] AntonioMkvrqsfEGJTTQSGQI6160-06-79 18:28:00 Test Item Value Reference Range Interpretation Comments Eosinophils (test code = Eosinophils) 2.1 [facility] AntonioUqdqjtvEWHWFRJNIF7443-15-17 18:28:00 Test Item Value Reference Range Interpretation Comments Basophils (test code = Basophils) 0.5 [place] 378972-06-22 18:28:00 Test Item Value Reference Range Interpretation Comments Sed Rate (test code = Sed Rate) 2 [id number] 18:28:00 Test Item Value Reference Range Interpretation Comments Copper Lvl (test code = Copper Lvl) 80 70-175 [facility] [id number] 18:28:00 Test Item Value Reference Range Interpretation Comments Creatinine Lvl (test code = Creatinine 0.86 0.60-0.93 Lvl) [facility] [id number] 18:28:00 Test Item Value Reference Range Interpretation Comments eGFR NON-AFR. [place] (test code = 65 eGFR NON-AFR. [place]) [facility] [id number] 18:28:00 Test Item Value Reference Range Interpretation Comments eGFR (test code = eGFR 75 ) [facility] [id number] 18:28:00 Test Item Value Reference Range Interpretation Comments B/C Ratio (test code = B/C NOT APPLICABLE 6-22 Ratio) [place] 624342-06-22 18:28:00 Test Item Value Reference Range Interpretation Comments Sodium Lvl (test code = Sodium Lvl) 139 135-146 [place] 624342-06-22 18:28:00 Test Item Value Reference Range Interpretation Comments Potassium Lvl (test code = Potassium 4.5 3.5-5.3 Lvl) [place] 624342-06-22 18:28:00 Test Item Value Reference Range Interpretation Comments Chloride Lvl (test code = Chloride Lvl) 106 98-110 [place] 624342-06-22 18:28:00 Test Item Value Reference Range Interpretation Comments CO2 (test code = CO2) 26 20-32 [place] 624342-06-22 18:28:00 Test Item Value Reference Range Interpretation Comments Calcium Lvl (test code = Calcium Lvl) 10.7 8.6-10.4 [place] 624342-06-22 18:28:00 Test Item Value Reference Range Interpretation Comments Total Protein (test code = Total 6.8 6.1-8.1 Protein) [place] 624342-06-22 18:28:00 Test Item Value Reference Range Interpretation Comments Albumin Lvl (test code = Albumin Lvl) 4.4 3.6-5.1 [place] 624342-06-22 18:28:00 Test Item Value Reference Range Interpretation Comments Globulin (test code = Globulin) 2.4 1.9-3.7 [place] 624342-06-22 18:28:00 Test Item Value Reference Range Interpretation Comments A/G Ratio (test code = A/G Ratio) 1.8 1.0-2.5 [place] 624342-06-22 18:28:00 Test Item Value Reference Range Interpretation Comments Bili Total (test code = Bili Total) 0.4 0.2-1.2 [place] 624342-06-22 18:28:00 Test Item Value Reference Range Interpretation Comments Alk Phos (test code = Alk Phos) 52 37-153 [place] 624342-06-22 18:28:00 Test Item Value Reference Range Interpretation Comments ASPARTATE TRANSAMINASE (test code = 17 10-35 ASPARTATE TRANSAMINASE) [place] 624342-06-22 18:28:00 Test Item Value Reference Range Interpretation Comments ALANINE AMINOTRANSFERASE (test code = 17 6-29 ALANINE AMINOTRANSFERASE) [place] 378972-06-22 18:28:00 Test Item Value Reference Range Interpretation Comments WBC X 10x3 (test code = WBC X 10x3) 5.6 3.8-10.8 [place] 378972-06-22 18:28:00 Test Item Value Reference Range Interpretation Comments RBC X 10x6 (test code = RBC X 10x6) 4.59 3.80-5.10 [place] 378972-06-22 18:28:00 Test Item Value Reference Range Interpretation Comments Hgb (test code = Hgb) 13.6 11.7-15.5 [place] 378972-06-22 18:28:00 Test Item Value Reference Range Interpretation Comments Hct (test code = Hct) 41.0 35.0-45.0 [place] 378972-06-22 18:28:00 Test Item Value Reference Range Interpretation Comments MCV (test code = MCV) 89.3 80.0-100.0 [place] 378972-06-22 18:28:00 Test Item Value Reference Range Interpretation Comments MCH (test code = MCH) 29.6 pg 27.0-33.0 [place] 378972-06-22 18:28:00 Test Item Value Reference Range Interpretation Comments MCHC (test code = MCHC) 33.2 32.0-36.0 [place] 378972-06-22 18:28:00 Test Item Value Reference Range Interpretation Comments RDW (test code = RDW) 13.4 11.0-15.0 [place] 378972-06-22 18:28:00 Test Item Value Reference Range Interpretation Comments Platelet (test code = Platelet) 220 140-400 [place] 378972-06-22 18:28:00 Test Item Value Reference Range Interpretation Comments MPV (test code = MPV) 10.1 7.5-12.5 [place] 378972-06-22 18:28:00 Test Item Value Reference Range Interpretation Comments Neutrophils # (test code = Neutrophils 3052 2110-3478 #) [place] 378972-06-22 18:28:00 Test Item Value Reference Range Interpretation Comments Lymphocytes # (test code = Lymphocytes 7840 620-7005 #) [facility] AntonioDvwhhioZPIZMMMKAB1851-77-60 18:28:00 Test Item Value Reference Range Interpretation Comments Monocytes # (test code = Monocytes #) 426 200-950 [facility] AntonioGqtcqcsPMZPOPLZKX5554-59-59 18:28:00 Test Item Value Reference Range Interpretation Comments Eosinophils # (test code = Eosinophils 118 15-500 #) [facility] [id number] 18:28:00 Test Item Value Reference Range Interpretation Comments Basophils # (test code 28 See_Comment [Aut omated message] The = Basophils #) system which generated this result tra nsmitted reference range : <=200. The reference r sivakumar was not used to int erpret this result as normal/abnormal . [facility] AntonioJhcknluELFBACOWAR6179-73-38 18:28:00 Test Item Value Reference Range Interpretation Comments Segs (test code = Segs) 54.5 [facility] AntonioQviamztVQUEZZCFBY9078-42-67 18:28:00 Test Item Value Reference Range Interpretation Comments Lymphocytes (test code = Lymphocytes) 35.3 [place] 378972-06-22 18:28:00 Test Item Value Reference Range Interpretation Comments Monocytes (test code = Monocytes) 7.6 [place] 378972-06-22 18:28:00 Test Item Value Reference Range Interpretation Comments Eosinophils (test code = Eosinophils) 2.1 [place] 378972-06-22 18:28:00 Test Item Value Reference Range Interpretation Comments Basophils (test code = Basophils) 0.5 [place] 378972-06-22 18:28:00 Test Item Value Reference Range Interpretation Comments Sed Rate (test code = Sed Rate) 2 [place] 599082-06-22 18:28:00 Test Item Value Reference Range Interpretation Comments Copper Lvl (test code = Copper Lvl) 80 70-175 [facility]
[2023-03-09 00:31] LABS: Absolute Lymphocytes (CBC) 2.3 K/uL (0.7-4.9); Lymphocytes % 41.9 % (15.3-44.8); MCV 89.9 fL (80-100); RBC Red Blood Cell Count 4.45 M/uL (3.86-4.86)
[2023-03-09 00:43] LABS: Protime INR 1.01
[2023-03-09 01:01] LABS: ALT/SGPT 31 U/L (13-56); Albumin 3.6 g/dL (3.4-5.0); Alkaline Phosphatase 43 U/L (45-117); BUN Blood Urea Nitrogen 18 mg/dL (7-18); Bicarbonate 25 mEq/L (21-32); Bilirubin Total 0.6 mg/dL (0.2-1.0); Glomerular Filtration Rate 70 ml/min (=/>90); Glucose Level 118 mg/dL (74-106); NT PRO-BNP 42 pg/mL (<450); Sodium Level 139 mEq/L (136-145); Troponin High Sensitivity 4.1 pg/mL (<58.9)
[2023-03-09 01:03] LABS: AST/SGOT 32 U/L (15-37); Potassium 4.4 mEq/L (3.5-5.1)
[2023-03-09 01:04] LABS: Bilirubin Direct < 0.1 mg/dL (0-0.2); Bilirubin Indirect, Calculated ND mg/dL (0.2-0.8); Magnesium 2.1 mg/dL (1.6-2.4)
--- NOTE | 2023-03-09 02:11 | EDPHYS ---
Physician Documentation [facility] Name: Sandra Moore Age: 77 yrs Sex: Female : 1945 Arrival Date: 03/09/2023 Time: 00:02 Bed 8 Private MD: ED Physician Guadalupe Blunt HPI: 03/09 01:52 This 77 yrs old Female presents to ER via EMS with complaints of Chest Pain. sb4 01:52 Onset: The symptoms/episode began/occurred 2 week(s) ago. Associated signs and sb4 symptoms: Pertinent positives: Nausea, Pertinent negatives: shortness of breath, vomiting. Modifying factors: The patient symptoms are alleviated by nothing, the patient symptoms are aggravated by nothing. The patient has not experienced similar symptoms in the past. The patient has not recently seen a physician. 77 year old female with history of HTN and CKD3 presents via EMS with complaints of chest pain. She states that she has had some left-sided chest pain on and off for about 2 weeks now but it got worse this evening. She states that is associated with nausea. She denies shortness of breath, radiation, diaphoresis. Historical: - Allergies: 00:09 Codeine; jb4 00:09 Keflex; jb4 00:09 PENICILLINS; jb4 - PMHx: 00:09 Anxiety; chronic kidney disease (stage 3); GERD; Hypertension; osteoarthritis; jb4 - PSHx: 00:09 carpal tunnel x 2; Cholecystectomy; Tonsillectomy; Appendectomy; Hysterectomy; jb4 ROS: 01:55 Constitutional: Negative for fever, chills, and weight loss, Eyes: Negative for injury, sb4 pain, redness, and discharge, ENT: Negative for injury, pain, and discharge, Respiratory: Negative for shortness of breath, cough, wheezing, and pleuritic chest pain, Abdomen/GI: Negative for abdominal pain, nausea, vomiting, diarrhea, and constipation, MS/Extremity: Negative for injury and deformity, Skin: Negative for injury, rash, and discoloration, Neuro: Negative for headache, weakness, numbness, tingling, and seizure. 01:55 Cardiovascular: Positive for chest pain, Negative for edema, orthopnea, palpitations, paroxysmal nocturnal dyspnea. 01:55 All other systems are negative. Exam: 01:55 Constitutional: This is a well developed, well nourished patient who is awake, alert, sb4 and in no acute distress. Head/Face: Normocephalic, atraumatic. Eyes: Extra-ocular motions intact. Periorbital areas with no swelling, redness, or edema. ENT: Mucous membranes moist. Cardiovascular: Regular rate and rhythm with a normal S1 and S2. Respiratory: Lungs have equal breath sounds bilaterally, clear to auscultation and percussion. No rales, rhonchi or wheezes noted. No increased work of breathing, no retractions or nasal flaring. Abdomen/GI: Soft, non-tender, no distension. Skin: Warm, dry with normal turgor. Normal color with no rashes, no lesions, and no evidence of cellulitis. MS/ Extremity: Pulses equal, no cyanosis. Neurovascular intact. Full, normal range of motion. Neuro: Awake and alert, GCS 15, oriented to person, place, time, and situation. Cranial nerves II-XII grossly intact. Motor strength 5/5 in all extremities. Sensory grossly intact. Cerebellar exam normal. Normal gait. Vital Signs: 00:07 BP 120 / 69; Pulse 67; Resp 20; Temp 98.6(TE); Pulse Ox 93% on R/A; Weight 69 kg (M); jb4 01:00 BP 96 / 63; Pulse 56; Resp 18; Pulse Ox 95% on R/A; jb4 02:44 BP 114 / 69; Pulse 59; Resp 16; Pulse Ox 97% ; jb4 MDM: 00:07 Patient medically screened. sb4 01:55 Differential diagnosis: GERD, acute TX, unstable angina, aortic dissection, bronchitis, sb4 pneumonia. Scoring Tools HEART Score: History: ECG: Age: Risk Factors: 1 or 2 risk factors (1), Troponin: Total Score = 3. 02:10 Data reviewed: vital signs, nurses notes, EMS record, lab test result(s), EKG, sb4 radiologic studies, and as a result, I will discharge patient. Consideration of Admission/Observation Escalation of care including admission/observation considered. Care significantly affected by the following chronic conditions: Hypertension. Counseling: I had a detailed discussion with the patient and/or guardian regarding: the historical points, exam findings, and any diagnostic results supporting the discharge/admit diagnosis, the need for outpatient follow up, a client care coordinator. Special discussion: Based on the patient's history, exam, and Dx evaluation, there is no indication for emergent intervention or inpatient Tx. It is understood by the patient/guardian that if the Sx's persist or worsen they need to return immediately for re-evaluation. I discussed with the patient/guardian in detail that at this point there is no indication for admission to the hospital. It is understood, however, that if the symptoms persist or worsen the patient needs to return immediately for re-evaluation. 03/09 00:12 Order name: Basic Metabolic Panel; Complete Time: 01:09 sb4 03/09 00:12 Order name: CBC with Diff; Complete Time: 00:37 sb4 03/09 00:12 Order name: D-Dimer; Complete Time: 00:46 sb4 03/09 00:12 Order name: LFT's; Complete Time: 01: sb4 03/09 00:12 Order name: Magnesium; Complete Time: 01: sb4 03/09 00:12 Order name: NT PRO-BNP; Complete Time: 01: sb4 03/09 00:12 Order name: PT-INR; Complete Time: 00:46 sb4 03/09 00:12 Order name: Troponin HS; Complete Time: 01: sb4 03/09 01:21 Order name: Troponin High Sensitivity: repeat at 2:30 AM please; Complete Time: 02:05 sb4 03/09 00:12 Order name: XRAY Chest (1 view) sb4 03/09 00:12 Order name: EKG; Complete Time: 00:13 sb4 03/09 00:12 Order name: Cardiac monitoring; Complete Time: 00:13 sb4 03/09 00:12 Order name: EKG - Nurse/Tech; Complete Time: 00:13 sb4 03/09 00:12 Order name: IV Saline Lock; Complete Time: 00:13 sb4 03/09 00:12 Order name: Labs collected and sent; Complete Time: 00:36 sb4 03/09 00:12 Order name: O2 Per Protocol; Complete Time: 00: sb4 03/09 00:12 Order name: O2 Sat Monitoring; Complete Time: 00:13 sb4 EC:13 Rate is 69 beats/min. Rhythm is regular, Normal Sinus Rhythm. ID interval is normal at sb4 170 msec. QRS interval is normal at 102 msec. QT interval is normal at 404 msec. No Q waves. T waves are Normal. No ST changes noted. Clinical impression: Normal ECG. Interpreted by me. Reviewed by me. Administered Medications: No medications were administered Disposition: 07:08 STAFF ATTESTATION: The patient's history, exam findings, diagnostics and a summary of sd2 any interventions or procedures was reviewed in detail with the ED COLTON. I confirm the diagnosis as documented by the COLTON and I agree with the care plan articulated in the disposition section with regards to our discussion of the patient's case. Guadalupe Blunt MD. Disposition Summary: 03/09/23 02:10 Discharge Ordered Location: Home sb4 Problem: new sb4 Symptoms: are resolved sb4 Condition: Stable sb4 Diagnosis - Chest pain, unspecified sb4 Followup: sb4 - With: - When: 2 - 3 days - Reason: Further diagnostic work-up, Recheck today's complaints, Continuance of care, Re-evaluation by your physician Discharge Instructions: - Discharge Summary Sheet sb4 - Nonspecific Chest Pain, Adult, [id number] sb4 Forms: - Medication Reconciliation Form sb4 - Thank You Letter sb4 - Antibiotic Education sb4 - Prescription Opioid Use sb4 - Patient Portal Instructions sb4 Signatures: Dispatcher [employer] Alfonso Rae, GILSON RN Guadalupe Ponce MD MD sd2 Yolanda Rvai PA-C PA-C sb4
--- NOTE | 2023-03-09 02:11 | ER ---
Nurse's Notes [facility] Name: Sandra Moore Age: 77 yrs Sex: Female : 1945 Arrival Date: 03/09/2023 Time: 00:02 Bed 8 Private MD: Diagnosis: Chest pain, unspecified Presentation: 03/09 00:07 Chief complaint: EMS states: Pt reports intermittent chest pain since yesterday. It is jb4 worse today. Pt given 324 of ASA, and 2 sublingual 0.4mg nitro tablets. Has an 18g to the left AC. Coronavirus screen: At this time, the client does not indicate any symptoms associated with coronavirus-19. Ebola Screen: No symptoms or risks identified at this time. Initial Sepsis Screen: Does the patient meet any 2 criteria? No. Patient's initial sepsis screen is negative. Does the patient have a suspected source of infection? No. Patient's initial sepsis screen is negative. Risk Assessment: Do you want to hurt yourself or someone else? Patient reports no desire to harm self or others. Onset of symptoms was March 07, 2023. Transition of care: patient was not received from another setting of care. 00:07 Method Of Arrival: [facility] jb4 00:07 Acuity: MITESH 3 jb4 Triage Assessment: 00:09 General: Appears in no apparent distress. comfortable, Behavior is calm, cooperative. jb4 Pain: Complains of pain in chest Pain does not radiate. Pain currently is 6 out of 10 on a pain scale. EENT: No signs and/or symptoms were reported regarding the EENT system. Neuro: Level of Consciousness is awake, alert, obeys commands, Oriented to person, place, time, situation. Cardiovascular: Patient's skin is warm and dry. Respiratory: Airway is patent Respiratory effort is even, unlabored, Respiratory pattern is regular, symmetrical. GI: No signs and/or symptoms were reported involving the gastrointestinal system. : No signs and/or symptoms were reported regarding the genitourinary system. Derm: Skin is intact, Skin is pink, warm \T\ dry. Musculoskeletal: Circulation, motion, and sensation intact. Range of motion: intact in all extremities. Historical: - Allergies: 00:09 Codeine; jb4 00:09 Keflex; jb4 00:09 PENICILLINS; jb4 - PMHx: 00:09 Anxiety; chronic kidney disease (stage 3); GERD; Hypertension; osteoarthritis; jb4 - PSHx: 00:09 carpal tunnel x 2; Cholecystectomy; Tonsillectomy; Appendectomy; Hysterectomy; jb4 Screenin:44 [facility] ED Fall Risk Assessment (Adult) History of falling in the last 3 months, jb4 including since admission No falls in past 3 months (0 pts) Confusion or Disorientation No (0 pts) Score/Fall Risk Level 0 - 2 = Low Risk Oriented to surroundings, Maintained a safe environment. Abuse screen: Denies threats or abuse. Nutritional screening: No deficits noted. Tuberculosis screening: No symptoms or risk factors identified. Assessment: 01:00 Reassessment: Patient appears in no apparent distress at this time. Patient and/or jb4 family updated on plan of care and expected duration. Pain level reassessed. Patient is alert, oriented x 3, equal unlabored respirations, skin warm/dry/pink. 02:44 Reassessment: Patient appears in no apparent distress at this time. Patient and/or jb4 family updated on plan of care and expected duration. Pain level reassessed. Patient is alert, oriented x 3, equal unlabored respirations, skin warm/dry/pink. Vital Signs: 00:07 BP 120 / 69; Pulse 67; Resp 20; Temp 98.6(TE); Pulse Ox 93% on R/A; Weight 69 kg (M); jb4 01:00 BP 96 / 63; Pulse 56; Resp 18; Pulse Ox 95% on R/A; jb4 02:44 BP 114 / 69; Pulse 59; Resp 16; Pulse Ox 97% ; jb4 ED Course: 00:03 Patient arrived in ED. jj6 00:07 Alfonso Gonzalez, RN is Primary Nurse. jb4 00:07 Yolanda Ravi PA-C is PHCP. sb4 00:07 Guadalupe Blunt MD is Attending Physician. sb4 00:09 Triage completed. jb4 00:09 Arm band placed on right wrist. jb4 00:51 XRAY Chest (1 view) In Process Unspecified. EDMS 01:37 Troponin High Sensitivity: repeat at 2:30 AM please Sent. oe 02:10 Zackary Mathews MD is Referral Physician. sb4 02:44 Patient has correct armband on for positive identification. Bed in low position. Call jb4 light in reach. Side rails up X 1. Client placed on continuous cardiac and pulse oximetry monitoring. NIBP monitoring applied. 02:44 No provider procedures requiring assistance completed. IV discontinued, intact, jb4 bleeding controlled, No redness/swelling at site. Pressure dressing applied. Patient maintains SpO2 saturation greater than 95% on room air. Administered Medications: No medications were administered Outcome: 02:10 Discharge ordered by . terence 02:44 Discharged to home ambulatory. jb4 02:44 Condition: stable 02:44 Discharge instructions given to patient, Instructed on discharge instructions, follow up and referral plans. Demonstrated understanding of instructions, follow-up care. 02:46 Patient left the ED. jb4 Signatures: Dispatcher [employer] EDAlfonso Schultz, RN RN jb4 Xavier Kelley Jennifer jj6 Yolanda Ravi, PA-C PA-C sb4
[2023-03-09 04:06] VITALS: TEMP 98.6
[2023-03-09 04:10] VITALS: BP 114/69; O2SAT 97
--- NOTE | 2023-03-09 23:10 | RAD REPORT ---
EXAM DESCRIPTION: XR Chest, 1 View CLINICAL HISTORY: The patient is 77 years old and is Female; CHEST PAIN [facility] MAIN TECHNIQUE: Frontal view of the chest. COMPARISON: 04/07/2021 chest radiograph FINDINGS: LUNGS: Multiple punctate opacities noted overlying the lateral aspect of the right apex of the lung, favored to be external to the patient (possible hair or clothing accessories). PLEURAL SPACE: Unremarkable. No pleural effusion. No pneumothorax. HEART: Unremarkable. No cardiomegaly. MEDIASTINUM: Stable cardiomediastinal silhouette. BONES/JOINTS: Unremarkable. IMPRESSION: 1. Multiple punctate opacities noted overlying the lateral aspect of the right apex of the lung, favored to be external to the patient (possible hair or clothing accessories). Clinical correlation recommended. 2. No acute cardiopulmonary abnormality. Electronically signed by: Mason Lamar MD 03/09/2023 1:15 AM CDT Due to temporary technical issues with the PACS/Fluency reporting system, reports are being signed by the in house radiologists without review as a courtesy to insure prompt reporting. The interpreting radiologist is fully responsible for the content of the report.
--- NOTE | 2023-03-11 11:50 | EKG ---
Test Date: 2023-03-08 Test Time: 23:59:40 Auricular Acupuncturist: JAZMÍN MEASUREMENT RESULTS: Intervals: Rate: 69 NH: 170 QRSD: 102 QT: 404 QTc: 432 [place]: P: 74 NH: 170 QRS: -33 T: 44 INTERPRETIVE STATEMENTS: Normal sinus rhythm Left axis deviation Abnormal ECG Compared to ECG 12/26/2021 13:45:19 Left ventricular hypertrophy no longer present T-wave abnormality no longer present Possible ischemia no longer present Electronically Signed On 03-11-23 11:45:58 CDT by Zackary Mathews
== END 2023-03-09 02:46 | disposition home or self-care (01) ==
LOC: ER 00:02
DX: R07.89 Other chest pain (principal); I12.9 Hypertensive chronic kidney disease with stage 1 through stage 4 chronic kidney disease, or unspecified chronic kidney disease; N18.30 Chronic kidney disease, stage 3 unspecified; Z88.0 Allergy status to penicillin; Z88.1 Allergy status to other antibiotic agents; Z88.5 Allergy status to narcotic agent
CPT/HCPCS: 36415; 71045; 80048; 80076; 83735; 83880; 84484; 85025; 85379; 85610; 93005; 99284